=== PATIENT | male | born 1990 | race African-American/Black ===

== ENCOUNTER 2016-10-06 03:05 | Emergency (ER) | payer OTHER ==
[~2016-10-06] VITALS: Ht 185.4 cm; Wt 77.1 kg
[2016-10-06 03:44] VITALS: BP 128/72
[2016-10-06 03:49] LABS: BASOPHILS % (AUTO) 1.9 % (0.0-2.0); EOSINOPHILS % (AUTO) 2.7 % (0.0-3.0); LYMPHOCYTES % (AUTO) 47.2 % (20.0-45.0); MEAN CORPUSCULAR HEMOGLOBIN 27.7 PG (27.0-31.0); MEAN CORPUSCULAR HGB CONC 32.2 G/DL (32.0-36.0); MEAN CORPUSCULAR VOLUME 86 FL (80-99); MEAN PLATELET VOLUME 5.9 FL (6.5-10.1); MONOCYTES % (AUTO) 14.4 % (1.0-10.0); NEUTROPHILS % (AUTO) 33.8 % (45.0-75.0); PLATELET COUNT 320 K/UL (150-450); RED BLOOD COUNT 6.18 M/UL (4.70-6.10); RED CELL DISTRIBUTION WIDTH 12.4 % (11.6-14.8)
--- NOTE | 2016-10-06 04:01 | Emergency Room Report ---
History of Present Illness General Chief Complaint: General Complaint Source: Patient, Medical Record, EMS Present Illness HPI This is a 26-year-old male with a history of schizophrenia. He was sent from psychiatric facility for medical clearance. He had routine blood work done there was show potassium 6.1. Patient has no symptom. Denies any fever chills denies any kidney problem. He is otherwise asymptomatic. Allergies: Coded Allergies: PALIPERIDONE (Verified Allergy, Unknown, 10/06/16) RISPERIDONE (Verified Allergy, Unknown, 10/06/16) Patient History Past Medical History: see triage record, old chart reviewed, psych hx Past Surgical History: other Pertinent Family History: none Social History: Reports: smoking Immunizations: other Reviewed Nursing Documentation: PMH: Agreed, PSxH: Agreed Nursing Documentation-PMH History Of Psychiatric Problem: Yes - SCHIZO Review of Systems Eye: Denies: blurred vision, eye pain ENT: Denies: ear pain, nose congestion, throat swelling Respiratory: Denies: cough, shortness of breath Cardiovascular: Denies: chest pain, palpitations Gastrointestinal: Denies: abdominal pain, diarrhea, nausea, vomiting Musculoskeletal: Denies: back pain, joint pain Skin: Denies: rash Neurological: Denies: headache, numbness Endocrine: Denies: increased thirst, increased urine Hematologic/Lymphatic: Denies: easy bruising All Other Systems: negative except mentioned in HPI Physical Exam Vital Signs Date Time Temp Pulse Resp B/P Pulse Ox O2 Delivery O2 Flow Rate FiO2 10/06/16 03:11 97.5 70 16 128/72 96 Room Air vitals normal Sp02 EP Interpretation: reviewed, normal General Appearance: well appearing, no apparent distress, alert Head: normocephalic, atraumatic Eyes: bilateral eye EOMI, bilateral eye PERRL ENT: hearing grossly normal, normal pharynx Neck: full range of motion, supple, no meningismus Respiratory: chest non-tender, lungs clear, normal breath sounds Cardiovascular #1: regular rate, rhythm, no murmur Gastrointestinal: normal bowel sounds, non tender, no mass, no organomegaly, no bruit, non-distended Musculoskeletal: back normal, gait/station normal, normal range of motion Neurologic: alert, oriented x3 Psychiatric: no suicidal/homicidal ideation, other - Patient has delusion. Said that he is a DrCarlos also. Flat affect. Skin: warm/dry Medical Decision Making Diagnostic Impression: Primary Impression: Schizophrenia, acute undifferentiated Additional Impression: Encounter for medical screening examination ER Course Patient presents with reading of elevated potassium. This is probably a hemolyzed specimen. Potassium normal here. Glucose a low but patient ate here. No evidence of hypoglycemia. We'll discharge home to psych facility. EKG Diagnostic Results Rate: normal Rhythm: NSR ST Segments: no acute changes Last Vital Signs Date Time Temp Pulse Resp B/P Pulse Ox O2 Delivery O2 Flow Rate FiO2 10/06/16 03:44 97.5 70 16 128/72 96 Room Air Status: improved Disposition: XFER TO PSYCH HOSP/UNIT Condition: Stable Referrals: [facility] (PCP) Additional Instructions: Followup with your doctor as needed. Return if symptom worsen. ALEKSANDR PARKER M.D. Oct 06, 2016 04:01
[2016-10-06 04:06] LABS: ANION GAP 11 (5-15); CALCIUM 9.4 mg/dL (8.6-10.2); CARBON DIOXIDE 30 mEQ/L (20-30); CHLORIDE 101 mEQ/L (98-107); CREATININE 1.1 mg/dL (0.7-1.2); GLOMERULAR FILTRATION RATE > 60 mL/min (>60); HEMOLYSIS 4; POTASSIUM 3.9 mEQ/L (3.4-4.9); SODIUM 142 mEQ/L (135-145)
[2016-10-06 05:20] VITALS: BP 127/70
[2016-10-06 05:45] VITALS: BP 127/70
--- NOTE | 2016-11-12 03:13 | Cardiology Report ---
APPROVED REPORT EKG Measurement Heart [id number] Sinus bradycardia with 1st degree AV block Otherwise normal ECG
== END 2016-10-06 05:45 ==
LOC: EDBD 03:05 → EMR 03:31
DX: F20.9 Schizophrenia, unspecified (principal)
CPT/HCPCS: 36415; 80048; 82962; 85025; 93005; 99284